=== PATIENT | male | born 1955 | race Caucasian/White ===

== ENCOUNTER 2017-03-22 16:19 | Emergency (ER) | payer BC ==
[2017-03-22 16:23] VITALS: BP 133/93; PULSE 70; RESP 18; TEMP 98.3; O2SAT 97
[2017-03-22] MEDS ORDERED: LISI10TA3 PO (16:25)
[2017-03-22] MEDS ORDERED: MELO-1 PO (16:25)
[2017-03-22] MEDS ORDERED: LIDOCAINE HCL 1% PF 30 ML VIAL ONE (17:09)
--- NOTE | 2017-03-22 17:46 | PD ---
HPI Chief Complaint: Laceration/Skin Injury Time Seen by Provider: 16:55 Travel History International Travel<30 days: No Contact w/Intl Traveler<30days: No Traveled to known affect area: No History of Present Illness HPI 61-year-old male presents to the emergency room for evaluation of laceration to his right dorsal foot that occurred just prior to arrival. Patient was cutting sheet metal when the metal slipped and fell on top of his foot. He states with every step he took, some blood squirted out of his foot. He denies paresthesias or loss of range of motion. States he wrapped it in clean paper towel and came straight to the emergency room. Last tetanus was less than 5 years ago. ON LICENSE OF [facility] Past Medical History Diminished Hearing: No Hypertension: Yes Musculoskeletal: Yes Immunizations Current: Yes Tetanus Vaccination: < 5 Years Influenza Vaccination: No Past Surgical History Surgical History: No Previous Surgery Social History Alcohol Use: Yes (1 daily) Tobacco Use: No Substance Use: No Allergies-Medications (Allergen,Severity, Reaction): Coded Allergies: No Known Allergies (Unverified , 03/22/17) Reported Meds & Prescriptions Reported Meds & Active Scripts Active Reported Meloxicam 15 Mg Tab 15 Mg PO PRN Lisinopril 10 Mg Tab 15 Mg PO DAILY Review of Systems Except as stated in HPI: all other systems reviewed are Neg Physical Exam Narrative GENERAL: Well-nourished, well-developed male in no acute distress. Afebrile. Ambulatory. SKIN: Focused skin assessment warm/dry. There is a 4 cm deep laceration to the right dorsal foot over the first MCP joint. Tendon has a laceration but is not severed. Not bleeding. HEAD: Normocephalic. EYES: No scleral icterus. No injection or drainage. NECK: Supple, trachea midline. No JVD or lymphadenopathy. CARDIOVASCULAR: Regular rate and rhythm without murmurs, gallops, or rubs. RESPIRATORY: Breath sounds equal bilaterally. No accessory muscle use. EXTREMITY: Full range motion of the right foot. Tenderness to palpation around laceration. Less than 2 second capillary refill distally. Distal sensation intact. Data Data Last Documented VS Vital Signs Date Time Temp Pulse Resp B/P Pulse Ox O2 Delivery O2 Flow Rate FiO2 03/22/17 16:23 98.3 70 18 133/93 97 Orders Lidocaine Pf 1% Inj (Xylocaine-Mpf 1% In (03/22/17 17:09) MDM Medical Decision Making Medical Screen Exam Complete: Yes Emergency Medical Condition: Yes Medical Record Reviewed: Yes Differential Diagnosis Laceration, abrasion, contusion, skin tear Narrative Course 61-year-old male presents to the emergency room for evaluation of laceration to his right foot that occurred just prior to arrival. Patient cut himself on sheet metal. Tetanus is up-to-date. There is a 4 cm deep laceration of the right foot with a small tendon laceration. Full range of motion of the foot. Less than 2 second capillary refill distally. No paresthesias. Wound was repaired, see procedure note for details. Patient discharged with wound care instructions and told to follow-up with a primary care physician or return for worsening symptoms. He understands and agrees to plan. Procedures Procedure Narrative LACERATION LOCATION: Right dorsal foot LENGTH: 4 cm NUMBER OF STITCHES/HOUSTON: 7 simple interrupted REPAIR: The area of the laceration was prepped with Betadine and sterilely draped. The laceration was infiltrated with 1% lidocaine. The wound was copiously irrigated and explored without evidence of foreign body or neurovascular injury. There is a very slight, superficial tendon injury but tendon is intact and patient has full range of motion. The wound was closed using 5-0 Prolene. This was a single layer repair. A sterile dressing was applied. The patient was advised to keep the dressing clean and dry. Patient tolerated the procedure well. Diagnosis Primary Impression: Laceration of right foot Qualified Code: S91.311A - Laceration of right foot, initial encounter Referrals: Primary Care Physician Patient Instructions: General Instructions, Laceration (ED) Additional Instructions: Keep wound clean and dry. Apply triple antibiotic ointment daily. Stitches out in 10-14 days. Return for worsening symptoms or signs of infection. Follow-up with primary care physician as needed. Disposition: 01 DISCHARGE HOME Condition: Stable Geri Leon Mar 22, 2017 17:46
[2017-03-22] MEDS ORDERED: LIDOCAINE HCL 1% PF 30 ML VIAL INFIL ONE (18:00)
== END 2017-03-22 18:01 | disposition home or self-care (01) ==
LOC: PHEFT 16:19
DX: S91.311A Laceration without foreign body, right foot, initial encounter (principal); W26.8XXA Contact with other sharp object(s), not elsewhere classified, initial encounter
CPT/HCPCS: 12002; 96372

== ENCOUNTER 2017-08-16 10:55 | Emergency (ER) | payer BC ==
[~2017-08-16] VITALS: Ht 180.3 cm; Wt 89.8 kg
[~2017-08-16 10:55] MED LIST: LISI10TA3 PO; MELO15TA20 PO
[2017-08-16 11:00] VITALS: BP 162/94; PULSE 74; RESP 16; TEMP 99.3; O2SAT 95
--- NOTE | 2017-08-16 11:19 | PD ---
HPI Chief Complaint: Abdominal Pain Time Seen by Provider: 11:03 Travel History International Travel<30 days: No Contact w/Intl Traveler<30days: No Traveled to known affect area: No History of Present Illness HPI This 62-year-old male is complaining of upper epigastric/lower chest pain for 6 days. He says the pain has been constant. It does not appear to be affected by eating. It started last . He had similar pain last January and went to his doctor. He was referred to a gastric and neurologist and had endoscopy which was negative. The pain resolved after 3 days. He has had elevated blood pressure and is on medication. The pain is not related to exertion. He has fairly persistent nausea and occasionally has dry heaves. PFSH Past Medical History Diminished Hearing: No Hypertension: Yes Musculoskeletal: Yes Immunizations Current: Yes Social History Alcohol Use: Yes (1 daily) Tobacco Use: No Substance Use: No Allergies-Medications (Allergen,Severity, Reaction): Coded Allergies: No Known Allergies (Unverified Adverse Reaction, Unknown, 08/16/17) Reported Meds & Prescriptions Reported Meds & Active Scripts Active Reported Lisinopril 10 Mg Tab 15 Mg PO DAILY Review of Systems General / Constitutional: No: Fever, Chills Eyes: No: Diploplia, Blurred Vision HENT: No: Headaches, Vertigo Cardiovascular: Positive: Chest Pain or Discomfort, No: Palpitations, Irregular Rhythm, Edema Respiratory: No: Cough, Shortness of Breath Gastrointestinal: Positive: Nausea, Vomiting, Abdominal Pain, No: Diarrhea Genitourinary: No: Urgency, Frequency Musculoskeletal: No: Myalgias, Arthralgias Skin: No Rash, No Itching Neurologic: No: Weakness, Dizziness Hematologic/Lymphatic: No: Easy Bruising Physical Exam Narrative GENERAL: Well-developed male SKIN: Focused skin assessment warm/dry. HEAD: Atraumatic. Normocephalic. EYES: Pupils equal and round. No scleral icterus. No injection or drainage. ENT: No nasal bleeding or discharge. Mucous membranes pink and moist. NECK: Trachea midline. No JVD. CARDIOVASCULAR: Regular rate and rhythm. No murmur appreciated. RESPIRATORY: No accessory muscle use. Clear to auscultation. Breath sounds equal bilaterally. GASTROINTESTINAL: Abdomen soft, non-tender, nondistended. Hepatic and splenic margins not palpable. I really cannot elicit any tenderness in the abdomen. I palpated deeply over the right upper quadrant cannot elicit any pain. He indicates the site of pain is over the lower sternum MUSCULOSKELETAL: No obvious deformities. No clubbing. No cyanosis. No edema. NEUROLOGICAL: Awake and alert. No obvious cranial nerve deficits. Motor grossly within normal limits. Normal speech. PSYCHIATRIC: Appropriate mood and affect; insight and judgment normal. Data Data Last Documented VS Vital Signs Date Time Temp Pulse Resp B/P (MAP) Pulse Ox O2 Delivery O2 Flow Rate FiO2 08/16/17 12:28 67 140/86 (104) 94 08/16/17 11:00 99.3 16 Orders Orders Electrocardiogram (08/16/17 11:13) Complete Blood Count With Diff (08/16/17 11:13) Comprehensive Metabolic Panel (08/16/17 11:13) Troponin I (08/16/17 11:13) Lipase (08/16/17 11:13) Chest, Pa & Lat (08/16/17 11:13) Ct Abd/Pel W Iv Contrast(Rout) (08/16/17 11:13) Ct Thorax/ Chest W Iv Contrast (08/16/17 11:51) Iohexol 350 Inj (Omnipaque 350 Inj) (08/16/17 12:20) Labs Laboratory Tests Test 08/16/17 11:32 White Blood Count 9.9 TH/MM3 Red Blood Count 4.88 MIL/MM3 Hemoglobin 14.7 GM/DL Hematocrit 45.4 % Mean Corpuscular Volume 93.1 FL Mean Corpuscular Hemoglobin 30.1 PG Mean Corpuscular Hemoglobin Concent 32.3 % Red Cell Distribution Width 12.2 % Platelet Count 305 TH/MM3 Mean Platelet Volume 8.9 FL Neutrophils (%) (Auto) 79.1 % Lymphocytes (%) (Auto) 14.0 % Monocytes (%) (Auto) 4.8 % Eosinophils (%) (Auto) 1.7 % Basophils (%) (Auto) 0.4 % Neutrophils # (Auto) 7.8 TH/MM3 Lymphocytes # (Auto) 1.4 TH/MM3 Monocytes # (Auto) 0.5 TH/MM3 Eosinophils # (Auto) 0.2 TH/MM3 Basophils # (Auto) 0.0 TH/MM3 CBC Comment DIFF FINAL Differential Comment Blood Urea Nitrogen 12 MG/DL Creatinine 0.90 MG/DL Random Glucose 104 MG/DL Total Protein 6.6 GM/DL Albumin 3.4 GM/DL Calcium Level 8.3 MG/DL Alkaline Phosphatase 55 U/L Aspartate Amino Transf (AST/SGOT) 14 U/L Alanine Aminotransferase (ALT/SGPT) 27 U/L Total Bilirubin 0.9 MG/DL Sodium Level 138 MEQ/L Potassium Level 3.8 MEQ/L Chloride Level 106 MEQ/L Carbon Dioxide Level 25.0 MEQ/L Anion Gap 7 MEQ/L Estimat Glomerular Filtration Rate 85 ML/MIN Troponin I LESS THAN 0.02 NG/ML Lipase 120 U/L MDM Medical Decision Making Medical Screen Exam Complete: Yes Emergency Medical Condition: Yes Medical Record Reviewed: Yes Differential Diagnosis Differential includes cholecystitis, cholelithiasis, gastritis, GERD, mass lesion, pericarditis Narrative Course His pain is quite atypical in that it is not aggravated by eating and I cannot elicit any abdominal tenderness. I have ordered CTs of both chest and abdomen. His hemoglobin is 14 7 with a white count of 9.9. AST is 14 ALT is 27 glucose is 104. EKG and troponin are both normal. His pain has been persistent for several days so I doubt it is a cardiac etiology. He has had a cough recently but CT chest is negative for any infiltrate or other mass lesion. He had this pain previously and it went away spontaneously. He has had some relief with hydrocodone at home and I will prescribe some additional. I will also give Zofran. He is to follow-up with Dr. Richards. He may be related to gastritis ulcer disease and I have recommended that he take Protonix daily Diagnosis Primary Impression: Abdominal pain Additional Instructions: Take Protonix daily Scripts Ondansetron Odt (Zofran Odt) 4 Mg Tab 4 MG SL Q6HR Y for Nausea/Vomiting, #10 TAB 0 Refills Prov: Satinder Kasper MD 08/16/17 Hydrocodone-Acetaminophen (Hydrocodone-Acetaminophen) 5-325 mg Tab 1 TAB PO Q4H Y for PAIN, #30 TAB 0 Refills Prov: Satinder Kasper MD 08/16/17 Disposition: 01 DISCHARGE HOME Condition: Stable Satinder Kasper MD Aug 16, 2017 11:18
[2017-08-16 11:42] LABS: AUTOMATED NEUTROPHIL # 7.8 TH/MM3 (1.8-7.7); BASOPHIL % 0.4 % (0.0-2.0); EOSINOPHIL # 0.2 TH/MM3 (0-0.4); EOSINOPHIL % 1.7 % (0.0-4.0); HEMATOCRIT 45.4 % (39.0-51.0); LYMPHOCYTE # 1.4 TH/MM3 (1.0-4.8); MEAN CELL VOLUME 93.1 FL (80.0-100.0); MEAN CORPUSCULAR HEMOGLOBIN 30.1 PG (27.0-34.0); MEAN CORPUSCULAR HGB CONC 32.3 % (32.0-36.0); MONO % 4.8 % (0.0-8.0); NEUT % 79.1 % (16.0-70.0); PLATELET COUNT 305 TH/MM3 (150-450); RED BLOOD COUNT 4.88 MIL/MM3 (4.50-5.90); RED CELL DISTRIBUTION WIDTH 12.2 % (11.6-17.2); WHITE BLOOD COUNT 9.9 TH/MM3 (4.0-11.0)
[2017-08-16 11:43] LABS: HEMO FLAGS DIFF FINAL
--- NOTE | 2017-08-16 11:48 | RADRPT ---
EXAM DATE/TIME: 08/16/2017 11:38 [facility] COMPARISON: No previous studies available for comparison. INDICATIONS : Pain over lower sternum, no known injury. MEDICAL HISTORY : Hypertension. SURGICAL HISTORY : None. ENCOUNTER: Initial ACUITY: 4 - 6 days PAIN SCORE: 6/10 LOCATION: Bilateral middle lower chest FINDINGS: Minimal linear parenchymal opacities in the left lower lobe. Cardiomediastinal contours are within no rmal limits. Apparent mild compression deformity of L1 vertebral body. CONCLUSION: 1. Left lower lobe linear parenchymal opacities consistent with atelectasis/scarring. 2. Suspect mild compression deformity of L1 vertebral body of unknown chronicity. Oliverio Stanley MD on August 16, 2017 at 11:44 Board Certified Radiologist. This report was verified electronically.
[2017-08-16 11:52] LABS: CHLORIDE 106 MEQ/L (98-107); POTASSIUM 3.8 MEQ/L (3.5-5.1); SODIUM (NA) 138 MEQ/L (136-145)
[2017-08-16 11:57] LABS: ANION GAP 7 MEQ/L (5-15); BLOOD UREA NITROGEN 12 MG/DL (7-18)
[2017-08-16 12:00] LABS: ALT (GPT) 27 U/L (12-78); AST (GOT) 14 U/L (15-37); GLOMERULAR FILTRATION RATE 85 ML/MIN (>89)
[2017-08-16 12:01] LABS: TOTAL BILIRUBIN ADULT 0.9 MG/DL (0.2-1.0)
[2017-08-16 12:03] LABS: ALKALINE PHOSPHATASE 55 U/L (45-117)
[2017-08-16] MEDS ORDERED: IOHEXOL 350 MG/ML 10 ML VIAL (for RAD DIAG) IVCONTRAST ONE (12:20)
--- NOTE | 2017-08-16 12:23 | RADRPT ---
EXAM DATE/TIME: 08/16/2017 12:07 [facility] COMPARISON: No previous studies available for comparison. INDICATIONS : Midline lower chest and upper abdominal pain and nausea x 6 days. IV CONTRAST: 90 cc Omnipaque 350 (iohexol) IV ; Cumulative dose for multiple exams. RADIATION DOSE: 17.23 CTDIvol (mGy) ; Combined studies - Thorax/Abdomen/Pelvis MEDICAL HISTORY : Hypertension. SURGICAL HISTORY : None. ENCOUNTER: Initial ACUITY: 4 - 6 days PAIN SCALE: 7/10 LOCATION: chest TECHNIQUE: Volumetric scanning of the chest was performed. Using automated exposure control and adjustment of t he mA and/or kV according to patient size, radiation dose was kept as low as reasonably achievable to obtain optimal diagnostic quality images. DICOM format image data is available electronically for review and comparison. Follow-up recommendations for detected pulmonary nodules are based at a minimum on nodule size and pa tient risk factors according to Fleischner Society Guidelines. FINDINGS: LUNGS: There is no consolidation or pneumothorax. No concerning pulmonary nodule is visualized. PLEURA: There is no pleural thickening or pleural effusion. MEDIASTINUM: The heart and great vessels demonstrate no acute abnormality. There is no mediastinal or hilar lymph adenopathy. AXILLAE: Within normal limits. No lymphadenopathy. SKELETAL: Within normal limits for patient age. MISCELLANEOUS: The visualized upper abdominal organs demonstrate no acute abnormality. CONCLUSION: Normal examination. Iraj Pugh MD on August 16, 2017 at 12:22 Board Certified Radiologist. This report was verified electronically.
--- NOTE | 2017-08-16 12:26 | RADRPT ---
EXAM DATE/TIME: 08/16/2017 12:07 [facility] COMPARISON: No previous studies available for comparison. INDICATIONS : Midline lower chest and upper abdominal pain and nausea x 6 days. IV CONTRAST: 90 cc Omnipaque 350 (iohexol) IV ; Cumulative dose for multiple exams. ORAL CONTRAST: No oral contrast ingested. RADIATION DOSE: 17.23 CTDIvol (mGy) ; Combined studies - Thorax/Abdomen/Pelvis MEDICAL HISTORY : Hypertension. SURGICAL HISTORY : None. ENCOUNTER: Initial ACUITY: 4 - 6 days PAIN SCALE: 7/10 LOCATION: upper quadrant TECHNIQUE: Volumetric scanning of the abdomen and pelvis was performed. Using automated exposure control and ad justment of the mA and/or kV according to patient size, radiation dose was kept as low as reasonably achievable to obtain optimal diagnostic quality images. DICOM format image data is available electro nically for review and comparison. FINDINGS: LOWER LUNGS: The visualized lower lungs are clear. LIVER: Homogeneous density without lesion. There is no dilation of the biliary tree. No calcified gallston es. SPLEEN: Normal size without lesion. PANCREAS: Within normal limits. KIDNEYS: Normal in size and shape. There is no mass, stone or hydronephrosis. ADRENAL GLANDS: Within normal limits. VASCULAR: There is no aortic aneurysm. BOWEL/MESENTERY: The stomach, small bowel, and colon demonstrate no acute abnormality. There is no free intraperitone al air or fluid. ABDOMINAL WALL: Within normal limits. RETROPERITONEUM: There is no lymphadenopathy. BLADDER: No wall thickening or mass. REPRODUCTIVE: Within normal limits. INGUINAL: There is no lymphadenopathy or hernia. MUSCULOSKELETAL: Within normal limits for patient age. CONCLUSION: Normal examination. Iraj Pugh MD on August 16, 2017 at 12:24 Board Certified Radiologist. This report was verified electronically.
[2017-08-16 12:28] VITALS: BP 140/86; PULSE 67; O2SAT 94
[2017-08-16] MEDS ORDERED: HYDR-3516 PO (12:52)
[2017-08-16] MEDS ORDERED: ZOFR4TAB3 SL (12:52)
--- NOTE | 2017-08-18 08:40 | EKG ---
Date Performed: 08/16/2017 Time Performed: 11:19:49 PTAGE: 62 years EKG: Sinus rhythm NORMAL ECG NO PREVIOUS TRACING DOCTOR: Iraj Lemus Interpretating Date/Time 08/18/2017 08:39:53
== END 2017-08-16 13:04 | disposition home or self-care (01) ==
LOC: PHED 10:55
DX: R10.9 Unspecified abdominal pain (principal); I10 Essential (primary) hypertension; Z79.899 Other long term (current) drug therapy
CPT/HCPCS: 71020; 71260; 74177; 80053; 83690; 84484; 85025; 93005; 99285; Q9967